=== PATIENT | male | born 1985 | race Caucasian/White ===

== ENCOUNTER 2019-05-01 15:10 | Emergency (ER) | payer SELFPAY ==
[~2019-05-01] VITALS: Ht 165.1 cm; Wt 88.9 kg
[~2019-05-01 15:10] MED LIST: ACET500C5 PO; CYCL10TA7 PO; HYDR-3498 PO; IBUP-1542 PO; MAG-19 PO; OMEP20CA9 PO; ONDA4TAB14 PO
[2019-05-01 15:13] VITALS: Ht 165.1 cm; Wt 88.9 kg
[2019-05-01] MEDS ORDERED: SOD CHLORIDE 0.9% 1,000 ML IV STA (16:08)
[2019-05-01] MEDS ORDERED: FAMOTIDINE 20 MG INJ IV STA (16:08)
[2019-05-01] MEDS ORDERED: ONDANSETRON 4 MG INJ IV STA (16:08)
[2019-05-01] MEDS ORDERED: MAGNESIUM SULFATE 2 GM, MULTIVITAMINS 10 ML, THIAMINE 100 MG, FOLIC ACID 1 MG in SOD CH... IV STA (16:21)
[2019-05-01] MEDS ORDERED: LORAZEPAM 2 MG INJ IV ONE (16:30)
[2019-05-01] MEDS ORDERED: METOCLOPRAMIDE 10 MG INJ IV ONE (18:30)
[2019-05-01 19:36] VITALS: BP 115/75; PULSE 100; RESP 18
== END 2019-05-01 19:38 | disposition home or self-care (01) ==
LOC: E/R 15:10
DX: K29.20 Alcoholic gastritis without bleeding (principal); R19.7 Diarrhea, unspecified; R00.2 Palpitations
CPT/HCPCS: 80053; 82150; 83690; 84484; 85025; 85610; 85730; 93005; J2060; J2405; J3411; J3475; J7030; 96374; 96375; J2765